=== PATIENT | female | born 1940 | race Caucasian/White ===

== ENCOUNTER → 2017-03-05 | Outpatient (CLI) | payer MEDICARE ==
[~2017-03-05] MED LIST: ATORVASTATIN CA40 MG PO; CALCIUM 600 +1 EAC1 PO; CARVEDILOL12.5 MG PO; CHLORTHALIDONE25 MG PO; COLESTIPOL HCL1 G1 PO; FISH OIL 1,001000 M2 PO; GLUMETZA1000; LITE COAT ASPI325 MG PO; MAVIK2 MG PO; MULTI VITAMIN1 EACH PO; NEURONTIN300 MG PO; PAXIL20 MG PO; PRILOSEC 20 MG20 MG PO; TYLENOL ARTHRI650 MG PO; VITAMIN D2000 UNI1 PO; VITAMINC500 PO
--- NOTE | 2017-03-25 08:31 | PAINCON ---
[facility] [address] [place] [address] PAIN MANAGEMENT CONSULTATION Name: STEVEN MENCHACA Room: [facility] JOSE Urbina#: [id number] Admission: 03/05/17 Attend Phys: Phuc Nelson MD Discharge: Date of : 41 Report #: [id number] THIS REPORT FOR: //name// CC: Wanda Nelson DATE OF SERVICE: 03/05/2017 FOLLOWUP COMPLAINT: I was lifting my mattress and the pain returned. FOLLOWUP HISTORY: The patient is a 76-year-old female who has been seen in the pain clinic because of lumbar radiculopathy. She has undergone an epidural steroid injections. She was having pain and discomfort in the L2-L3/L3-L4 distribution. She underwent an epidural steroid injection in January. She noted significant improvement with that. She had been doing quite well. She was cleaning her house. She was changing the mattress position. After lifting the mattress she noted a worsening of pain and discomfort in her back, which had started to radiate down into the anterior portion of her leg again. She noticed that she had significant/very good relief after the last epidural steroid injection. As you recall, she gerard in [place]. She is anticipating going back down to [place] here in the near future. At this point, she has returned to the pain clinic with pain and discomfort, which is similar to that which she had in the beginning. She would like to proceed with another epidural steroid injection given that she received a significant amount of pain relief. She has had no complications from the last injection. She is experiencing some numbness in her thigh with weakness and tingling. She feels that her current medications are reasonable. ALLERGIES: No known drug allergies. CURRENT MEDICATIONS: Tylenol Extra Strength 1300 mg b.i.d., vitamin C 1000 mg, aspirin coated 325 mg daily, Lipitor 40 mg, vitamin D3, Coreg 12.5 mg b.i.d., chlorthalidone 25 mg, colestipol 1 gram, fish oil, metformin 1000 mg, multivitamin, Prilosec 20 mg b.i.d., Paxil 20 mg, Mavik 2 mg. PHYSICAL EXAMINATION: VITAL SIGNS: Blood pressure 135/78, heart rate 78, respiratory rate 16, room air saturation 98%, temperature 97.6, height 5 feet 3 inches, weight 134 pounds, BMI is 23.8. The patient has not fallen since we saw her last. HEENT: Atraumatic. Eyes, ears, nose and throat are unremarkable. The patient does complain of some chronic rhinitis. Mucous membranes are moist. No JVD. HEART: Regular rate. ABDOMEN: Nontender. The patient has pain and discomfort with pain radiating down into the right lower thigh [place] [address] PAIN MANAGEMENT CONSULTATION Name: STEVEN MENCHACA [id number] Admission: 03/05/17 Attend Phys: Phuc Nelson MD Discharge: Date of : 41 Report #: [id number] IMPRESSION: 1. Lumbar radiculopathy in L2-L3/L3-L4 distribution of her right thigh. 2. Osteoporosis. 3. Hyperlipidemia. 4. Hypertension. 5. Prediabetes. 6. Coronary artery disease. 7. Abdominal aortic aneurysm, stable with a size of 3.1 cm in 07/2013. 8. Spinal stenosis, cervical and lumbar areas. RECOMMENDATIONS: We discussed the treatment options with the patient. Risks and benefits of another epidural steroid injection were discussed and agreed upon. The patient had received a good deal of improvement after the last injection. She was moving her mattress and noticed a worsening of pain and discomfort. At this juncture, we will proceed with another epidural steroid injection. Risks and benefits of the procedure were again reviewed and they could include, but are not limited to infection, increased muscle soreness, headache, bleeding, nerve damage, spinal headache. The patient questions were sought and answered. PROCEDURE NOTE: The patient was placed in the prone position. Fluoroscopy was used to identify the L3/L4 interspace. This is the area where we had injected at the last visit. She found that the results were very good and we will proceed with another injection at this level. Fluoroscopy was used using an AP and lateral viewing. After appropriate placement and the back had been sterilely prepped with Betadine and infiltrated with 0.25% bupivacaine. A 17-gauge Tuohy with loss of resistance technique was used to gain access to the epidural space. There was no CSF, heme or paresthesia. A total of 80 mg Depo-Medrol, 40 mg triamcinolone and 2 mL of 0.25% bupivacaine was injected. The needle was removed. There was no bleeding. A Band-Aid was then placed in this area. The patient was then taken to the recovery room where she remained for an appropriate amount of time. She will call us if she has any concerns. We would like to thank you for letting us participate in her care. We hope she continues to improve. <ELECTRONICALLY SIGNED> By: Phuc Nelson MD 03/25/17 0831 [id number]. MD DELLA Shah
== END | disposition home or self-care (01) ==
LOC: M.PC 02:01
DX: M54.16 Radiculopathy, lumbar region (principal); M81.0 Age-related osteoporosis without current pathological fracture; E78.5 Hyperlipidemia, unspecified; I10 Essential (primary) hypertension; I25.10 Atherosclerotic heart disease of native coronary artery without angina pectoris; I71.4 Abdominal aortic aneurysm, without rupture; M48.02 Spinal stenosis, cervical region; Z79.899 Other long term (current) drug therapy

== ENCOUNTER → 2017-09-22 | Outpatient (CLI) | payer MEDICARE ==
--- NOTE | 2017-09-23 14:16 | PAINCON ---
[facility] [address] [place] [address] PAIN MANAGEMENT CONSULTATION Name: STEVEN MENCHACA Room: [facility] JOSE PhilippeCollin#: [id number] Admission: 09/22/17 Attend Phys: Phuc Nelson MD Discharge: Date of : 41 Report #: [id number] THIS REPORT FOR: //name// CC: Wanda Nelson DATE OF SERVICE: 09/22/2017 FOLLOWUP COMPLAINT: Pain has been pretty much controlled since 02/2017. As noted worsening of pain and discomfort. Pain is mainly in the right side. FOLLOWUP HISTORY: The patient is a 76-year-old female who has been followed in the pain clinic because of lumbar radiculopathy. She underwent an epidural steroid injection in 02/2017. Notes that her pain has done quite well. Over the last few months, she has noted some recurrence and increasing pain. It involves her right side. She has had a flare on the left side as well. She has had no complication from the procedure. Epidural steroid injection able her to engage in activities. She would not be able to without their use. She has returned to the Pain Clinic with a desire to undergo another epidural steroid injection. Feels that Tylenol PM is somewhat helpful. Does not take a nonsteroidal anti-inflammatory medication on a regular basis other than aspirin. ALLERGIES: PROPOFOL. CURRENT MEDICATIONS: Tylenol Arthritis 650 mg b.i.d., vitamin C 500 mg, aspirin 325 mg daily, Lipitor 40 mg, calcium/vitamin D3 one tab t.i.d., Coreg 12.5 mg b.i.d., chlorthalidone 25 mg, colestipol 2 grams b.i.d., fish oil, metformin, multivitamin, Prilosec 20 mg b.i.d., Paxil 20 mg, Mavik 2 mg, total 4 mg daily. PAIN CLINIC ASSESSMENT: 1. History of osteoporosis and arthritic changes in the lower lumbar area, L2-L3. 2. Height 5 feet 4 inches, weight 130 pounds, BMI is 22.5. 3. Vital signs: Blood pressure 126/69, heart rate 61, respiratory rate 16, room air saturation 96%, temperature 98.1. 4. Pain intensity 07/02. 5. Fall risk. The patient has not fallen in the last 3 months. 6. Blood thinner. The patient is not on a blood thinning medication. 7. Hypertension. The patient is being treated for hypertension. 8. Opioid medication. The patient is not on an opioid medication. 9. Risk assessment low for opioid use. 10. Functional assessment tool. 11. Recreational drug use. The patient denies use of recreational drugs. 12. Tobacco: The patient denies use of tobacco. 13. Alcohol: The patient denies frequent [place] [address] PAIN MANAGEMENT CONSULTATION Name: STEVEN MENCHACA Room: [facility]#: [id number] Admission: 09/22/17 Attend Phys: Phuc Nelson MD Discharge: Date of : 41 Report #: [id number] PHYSICAL EXAMINATION: GENERAL: The patient is a well-developed, well-nourished white female. Appears her stated age. She is alert and oriented x 3. Affect is appropriate. Speech is fluent. HEENT: Normocephalic, atraumatic. Extraocular eye muscles intact. Sclerae nonicteric. The patient was wearing glasses. Hearing is within normal limits. Mucous membranes are moist. NECK: With good range of motion. HEART: Regular rate. ABDOMEN: Nontender. LUNGS: Clear to auscultation. EXTREMITIES: Upper extremity muscle strength is judged to be 5/5 for the major muscle groups in the upper extremity. MUSCULOSKELETAL: Without significant scoliosis, kyphosis or lordosis. The patient has pain and discomfort in the lower portion of her back. The patient is experiencing pain is radiating down into the L2-L3 area distribution on her thigh has noted some pain on the left side, but is predominantly on the right. IMPRESSION: 1. Lumbar radiculopathy in the L2-L3 dermatomal distribution near the thigh. 2. Osteoporosis. 3. Hyperlipidemia. 4. Hypertension. 5. Prediabetes. 6. Coronary artery disease. 7. Abdominal aortic aneurysm, stable size 3.1 cm in 07/2013. 8. Spinal stenosis, cervical and lumbar. RECOMMENDATIONS: We discussed treatment options with the patient. She has undergone epidural steroid injection in the past. Has getting good relief of this for greater than about 6 months. She has returned today because of the worsening of pain. She would like to proceed with another epidural steroid injection. Risks and benefits have discussed. The patient received greater than 75% improvement in her pain. Does still have some pain in her low back, groin area and down into the right hip. She would like to proceed with an injection. Risks and benefits were discussed and she chooses to proceed. PROCEDURE NOTE: The patient was taken to the examination room. Her back was sterilely prepped with a Betadine solution. Fluoroscopy using anterior, posterior as well as lateral viewing were incorporated for the procedure. Her back was sterilely prepped at the L3-L4 interspace, 0.25% bupivacaine was infiltrated. A 17-gauge Tuohy with loss of resistance technique was used to gain access to the epidural space. There was no CSF, heme or paresthesia. A total of 80 mg Depo-Medrol, 40 mg triamcinolone and 2 mL of 0.25% bupivacaine was injected. The patient tolerated the procedure well. [place] [address] PAIN MANAGEMENT CONSULTATION Name: STEVEN MENCHACA Room: [facility] ABDIELJuana Urbina#: [id number] Admission: 09/22/17 Attend Phys: Phuc Nelson MD Discharge: Date of : 41 Report #: [id number] remained in the Pain Clinic for an appropriate amount of time. We would like to thank you for letting us participate in her care. She will follow up as needed. <ELECTRONICALLY SIGNED> By: Phuc Nelson MD 09/23/17 1416 [id number] [id number]. Maurizio Nelson MD /nt
== END | disposition home or self-care (01) ==
LOC: M.PC 05:16
DX: M54.16 Radiculopathy, lumbar region (principal); G89.29 Other chronic pain; M48.061 Spinal stenosis, lumbar region without neurogenic claudication; M48.02 Spinal stenosis, cervical region; I10 Essential (primary) hypertension; I25.10 Atherosclerotic heart disease of native coronary artery without angina pectoris; E78.5 Hyperlipidemia, unspecified; M81.0 Age-related osteoporosis without current pathological fracture; Z98.890 Other specified postprocedural states; Z79.899 Other long term (current) drug therapy; Z88.8 Allergy status to other drugs, medicaments and biological substances

== ENCOUNTER → 2017-11-09 | Outpatient (CLI) | payer MEDICARE | LOC: M.ULTRA 09:17 | DX: Z12.31 Encounter for screening mammogram for malignant neoplasm of breast (principal); I71.4 Abdominal aortic aneurysm, without rupture ==

== ENCOUNTER → 2018-02-09 | Outpatient (CLI) | payer MEDICARE | END | disposition home or self-care (01) | LOC: M.PC 04:46 | DX: M54.16 Radiculopathy, lumbar region (principal); Z88.8 Allergy status to other drugs, medicaments and biological substances; Z79.899 Other long term (current) drug therapy; Z79.82 Long term (current) use of aspirin ==

== ENCOUNTER → 2018-06-29 | Outpatient (CLI) | payer MEDICARE ==
--- NOTE | ~2018-06-29 | PAINCON ---
[place] [address] PAIN MANAGEMENT CONSULTATION Name: STEVEN MENCHACA Room: [facility] Carlitos#: [id number] Admission: 06/29/18 Attend Phys: Phuc Nelson MD Discharge: Date of : 41 Report #: [id number] THIS REPORT FOR: //name// CC: Araceli Nelson DATE OF SERVICE: 06/29/2018 CHIEF COMPLAINT: "Low back pain has returned." HISTORY: The patient is a 78-year-old female who has been seen in the Pain Clinic because of pain and discomfort in her low back area. She suffers from lumbar radiculopathy. She notes that epidural steroid injections in the past have been quite fruitful. She notes that the pain level has returned with pain radiating down to her right leg. It involves her foot. There is a tingling sensation associated with this. Activities of daily living such as walking, sitting, standing, lifting and bending exacerbate this discomfort. She feels that the last injection was beneficial and has returned today for another in hope of decreasing the pain and discomfort which she is suffering from. ALLERGIES: PROPOFOL. CURRENT MEDICATIONS: Tylenol Arthritis 650 mg, vitamin C, aspirin 325 mg, Lipitor 40 mg, calcium vitamin D3 tablets t.i.d., Coreg 12.5 mg b.i.d., chlorthalidone 25 mg, colestipol 2 grams b.i.d., fish oil, metformin, multivitamins, Prilosec 20 mg, Paxil 20 mg, Mavik 2 mg - a total of 4 mg daily. PAIN CLINIC ASSESSMENT/PQRS: 1. History of osteoarthritis: The patient has arthritic changes in the low back area. She is not being treated for rheumatoid arthritis. 2. Height 5 feet 3 inches, weight 134 pounds, BMI is 23.8. 3. Vital signs: Blood pressure 109/63, heart rate 61, respiratory rate 16, room air saturation is 94%, temperature 97.5. 4. Pain intensity: 5/10. 5. Fall history: The patient has not fallen in the last 3 months. 6. Blood thinner: The patient is not on a blood thinning medication. 7. Hypertension: The patient is being treated for hypertension. 8. Opioids: The patient is not being treated with opioid medications. 9. Risk assessment tool: Low for opioid use. 10. Functional assessment tool. 11. Recreational drug use: The patient denies use of recreational drugs. 12. Tobacco: The patient denies use of tobacco. 13. Alcohol: The patient rarely drinks an alcoholic beverage. PHYSICAL EXAMINATION: GENERAL: The patient is a well-developed, well-nour[place] [address] PAIN MANAGEMENT CONSULTATION Name: BERNARDASTEVEN Room: [facility]#: [id number] Admission: 06/29/18 Attend Phys: Phuc Nelson MD Discharge: Date of : 41 Report #: [id number] appears her stated age of 78 years. She is alert and oriented x 3. Affect is appropriate. Speech is fluent. HEENT: Normocephalic, atraumatic. Extraocular eye muscles intact. Sclerae nonicteric. The patient is wearing her glasses. NECK: With good range of motion. HEART: Regular rate. ABDOMEN: Nontender. Bowel sounds present. LUNGS: Clear to auscultation, without rhonchi or rales. EXTREMITIES: Upper extremity muscle strength judged to be 5-/5 for the major muscle groups. The patient without significant scoliosis, kyphosis, or lordosis. The patient does have pain and discomfort in her back with pain that is radiating down in the L2-L3 distribution involving the anterior portion of her thigh, particularly on the right side today. IMPRESSION: 1. Lumbar radiculopathy, L2-L3 dermatomal distribution on the right. 2. History of osteoporosis. 3. Hyperlipidemia. 4. Hypertension. 5. Prediabetes. 6. Coronary artery disease. 7. Abdominal aortic aneurysm, stable, 3.1 cm, measured in 07/2013. 8. Spinal stenosis, cervical and lumbar areas of stenosis. RECOMMENDATIONS: We discussed treatment options with the patient. Again, risks and benefits of the epidural steroid injection were discussed. They include but are not limited to infection, worsening of pain, no improvement in pain, bleeding, nerve trauma, and the patient elects to proceed. PROCEDURE NOTE: The patient was taken to the procedure area. She was then assisted in getting on the examination table. Her back was sterilely prepped with a Betadine solution. A pillow was placed under her abdomen to bolster an improved positioning. A 25-gauge needle was then advanced at the ____ interspace. There was no CSF, heme or paresthesia. A total of 80 mg Depo-Medrol, 40 mg triamcinolone and 2 mL of 0.25% bupivacaine was injected. The patient tolerated the procedure well. A total of 9 seconds fluoroscopy time was used. She will follow up in the future as needed. We would like to thank you for letting us participate in her care. We hope she continues to improve. By: [id number]. MD alberto Shah
== END | disposition home or self-care (01) ==
LOC: M.PC 12:37
DX: M54.16 Radiculopathy, lumbar region (principal); G89.29 Other chronic pain; I10 Essential (primary) hypertension; I25.10 Atherosclerotic heart disease of native coronary artery without angina pectoris; E78.5 Hyperlipidemia, unspecified; M48.061 Spinal stenosis, lumbar region without neurogenic claudication; M48.02 Spinal stenosis, cervical region; Z98.890 Other specified postprocedural states; Z88.8 Allergy status to other drugs, medicaments and biological substances; Z87.39 Personal history of other diseases of the musculoskeletal system and connective tissue; Z79.82 Long term (current) use of aspirin; Z79.899 Other long term (current) drug therapy

== ENCOUNTER → 2018-08-30 | Outpatient (CLI) | payer MEDICARE | LOC: M.RAD 08-12 15:30 | DX: M81.0 Age-related osteoporosis without current pathological fracture (principal); E28.39 Other primary ovarian failure ==

== ENCOUNTER → 2018-11-17 | Outpatient (CLI) | payer MEDICARE | LOC: M.RAD 10:48 | DX: Z12.31 Encounter for screening mammogram for malignant neoplasm of breast (principal) ==

== ENCOUNTER → 2018-12-06 | Outpatient (CLI) | payer MEDICARE | LOC: M.ULTRA 12-03 10:30 | DX: I71.4 Abdominal aortic aneurysm, without rupture (principal) ==

== ENCOUNTER → 2019-01-25 | Outpatient (CLI) | payer MEDICARE ==
[~2019-01-25] MED LIST changes: +CRESTOR40 MG PO; +NAPROXEN SODIU220 M2 PO
--- NOTE | ~2019-01-25 | PAINCON ---
[facility] [address] [place] [address] PAIN MANAGEMENT CONSULTATION Name: STEVEN MENCHACA Room: [facility] Carlitos#: [id number] Admission: 01/25/19 Attend Phys: Phuc Nelson MD Discharge: Date of : 41 Report #: [id number] THIS REPORT FOR: //name// CC: Wanda Nelson DATE OF SERVICE: 01/25/2019 CHIEF COMPLAINT: The last epidural injection worked very nicely. I would like to have another. HISTORY: The patient is a 78-year-old female who has been followed in the pain clinic because of chronic back pain. She has undergone epidural steroid injections in the past and found that these have been beneficial. She states that the last injection was quite beneficial. She had a prolonged period of improvement. She has returned today with the hopes of undergoing another epidural injection. She is experiencing pain that radiates down into her legs and rates it as a 4/10. Describes as a constant ache. Notes that the pain is worse when she is sitting, going from a sitting to a standing position, bending and twisting. Notes the pain improves with rest. ALLERGIES: PROPOFOL. CURRENT MEDICATIONS: Tylenol Arthritis 600 mg, vitamin C, aspirin 325 mg, Lipitor 40 mg, calcium, vitamin D t.i.d., Coreg 12.5 mg b.i.d., chlorthalidone 25 mg, colestipol 22 grams b.i.d., fish oil, metformin, multivitamins, Prilosec 20 mg, Paxil 20 mg, Mavik 2 mg, total of 4 mg daily. PAIN CLINIC ASSESSMENT AND PQRS: 1. History of osteoarthritis. The patient has some arthritic changes in her low back area. She is not being treated for rheumatoid arthritis. 2. Height 5 feet 3 inches, weight 133 pounds, BMI is 24. 3. Vital Signs: Blood pressure 131/66, heart rate 62, respiratory rate 16, room air saturation is 94, and temperature 98.0. 4. Pain intensity 06/02. 5. Fall history: The patient has not fallen in the last 3 months. 6. Blood thinner. The patient is not on a blood thinning medication. 7. Hypertension. The patient is being treated for hypertension. 8. Opioids greater than 6 weeks. The patient is not being treated with opioids on a regular basis. 9. Risk assessment tool, low for opioid use. 10. Functional assessment tool reviewed. 11. Recreational drug use: The patient denies. 12. Tobacco: The patient denies use of tobacco. 13. Alcohol: The [place] [address] PAIN MANAGEMENT CONSULTATION Name: STEVEN MENCHACA [facility] [id number] Admission: 01/25/19 Attend Phys: Phuc Nelson MD Discharge: Date of : 41 Report #: [id number] PHYSICAL EXAMINATION: GENERAL: The patient is a well-developed, well-nourished 78-year-old female, who is alert and oriented x 3. Her affect is appropriate. Speech is fluent. HEENT: Normocephalic, atraumatic. Extraocular eye muscles intact. Sclerae nonicteric. Mucous membranes are moist. NECK: Without adenopathy. Good range of motion. HEART: Regular rate. Bowels sounds present. ABDOMEN: Nontender. LUNGS: Generally clear to auscultation. EXTREMITIES: Upper extremity muscle strength judged to be 5/5 for the major muscle groups in the upper extremity. The patient without significant scoliosis, kyphosis, or lordosis. The patient does have pain in the lower portion of her back with pain that is radiating down the L3-L4 dermatomal distribution. This involves the anterior portion of her thigh and particularly involves the right side. IMPRESSION: 1. Lumbar radiculopathy, L3-L4 dermatomal distribution. 2. ____ history of osteoporosis. 3. Hyperlipidemia. 4. Hypertension. 5. Prediabetes. 6. Coronary artery disease. 7. Abdominal aortic aneurysm, stable at 3.1 cm measured in 2013. 8. Spinal stenosis in cervical and lumbar areas of stenosis. RECOMMENDATIONS: We discussed treatment options with the patient. Risks and benefits of an epidural steroid injection were discussed. Possible complications of the procedure, which could include, but are not limited to infection, worsening pain, no improvement in pain, bleeding and nerve damage were discussed and the patient elects to proceed. PROCEDURE NOTE: The patient was taken to the procedure area. She was then assisted in getting on the examination table. Her back was sterilely prepped with a Betadine solution. At the L3-L4 area, 0.25% bupivacaine was infiltrated. A 17-gauge Tuohy with loss of resistance technique was used to gain access to the epidural space using fluoroscopy. There was no CSF, heme, or paresthesia. A total of 80 mg Depo-Medrol, 40 mg triamcinolone and 2 mL of 0.25% bupivacaine was injected. The patient tolerated the procedure well. She remained in the Pain Clinic for an appropriate amount of time. Pain decreased to 3 at the time of discharge. She will follow up in [place] [address] PAIN MANAGEMENT CONSULTATION Name: STEVEN MENCHACA [facility] [id number] Admission: 01/25/19 Attend Phys: Phuc Nelson MD Discharge: Date of : 41 Report #: [id number] We would like to thank you for letting us participate in her care. We hope she continues to improve. By: [id number]. Maurizio Nelson MD /nt
== END | disposition home or self-care (01) ==
LOC: M.PC 04:29
DX: M54.16 Radiculopathy, lumbar region (principal); G89.29 Other chronic pain; M48.061 Spinal stenosis, lumbar region without neurogenic claudication; M48.02 Spinal stenosis, cervical region; I10 Essential (primary) hypertension; E78.5 Hyperlipidemia, unspecified; I25.10 Atherosclerotic heart disease of native coronary artery without angina pectoris; Z98.890 Other specified postprocedural states; Z79.899 Other long term (current) drug therapy; Z88.8 Allergy status to other drugs, medicaments and biological substances; Z79.82 Long term (current) use of aspirin

== ENCOUNTER → 2019-04-12 | Outpatient (CLI) | payer MEDICARE ==
--- NOTE | 2019-04-15 09:08 | PAINCON ---
[facility] [address] [place] [address] PAIN MANAGEMENT CONSULTATION Name: STEVEN MENCHACA Room: [facility] JOSE Urbina#: [id number] Admission: 04/12/19 Attend Phys: Phuc Nelson MD Discharge: Date of : 42 Report #: [id number] THIS REPORT FOR: //name// cc: Araceli [place] Maggie M. DO ~ THIS REPORT FOR: //name// CC: Araceli Nelson DATE OF SERVICE: 04/12/2019 CHIEF COMPLAINT: Return of back pain. HISTORY: The patient is a 78-year-old female who has been followed in the pain clinic because of lumbar radiculopathy. She has noted some pain and discomfort in the low back area. Her unfortunately fell. He fractured his pelvis. As a result, she was forced to do significantly more activities. She noticed worsening of her pain after lifting and carrying a cooler out of the basement. Since that time, she has had more pain and discomfort. Rates her pain as a 3/10. She has returned today with the hopes of undergoing an epidural injection to help improve her pain and discomfort. She is feeling distraught. Her sister who she is very close to . She had a history of lung cancer. It appears that the cancer had infiltrated in her liver. This is causing the patient some consternation. ALLERGIES: PROPOFOL. CURRENT MEDICATIONS: Tylenol Arthritis 600 mg, vitamin C, aspirin 325 mg, Lipitor 40 mg, calcium, vitamin D t.i.d., Coreg 12.5 mg b.i.d., chlorthalidone 25 mg, colestipol 22 grams b.i.d., fish oil, metformin, multivitamin, Prilosec 20 mg, Paxil 20 mg. PAIN CLINIC ASSESSMENT AND PQRS: 1. History of osteoarthritis. The patient has some arthritic changes in her low back area. She is not being treated for rheumatoid arthritis. 2. Height 5 feet 3 inches, weight 131 pounds, BMI is 23.6. 3. Vital Signs: Blood pressure 131/69, heart rate is 56, respiratory rate 16, room air saturation 97%, temperature 97.4. 4. Pain intensity 05/02. 5. Fall history: The patient has not fallen in the last 3 months. 6. Blood thinner. The patient is not on a blood thinning medication. 7. Hypertension. The patient is being treated for hypertension. 8. Opioids greater than 6 weeks. The patient is not on an opioid regimen. 9. Risk assessment tool, low for opioid use. 10. Functional assessment [place] [address] PAIN MANAGEMENT CONSULTATION Name: STEVEN MENCHACA Room: [facility]#: [id number] Admission: 04/12/19 Attend Phys: Phuc Nelson MD Discharge: Date of : 42 Report #: [id number] 11. Tobacco: The patient denies use of tobacco. 12. Alcohol: The patient rarely drinks an alcoholic beverage. PHYSICAL EXAMINATION: GENERAL: The patient is a well-developed, well-nourished white female. Appears her stated age of 78 years. She is alert and oriented x 3. Her affect is appropriate. She is somewhat mournful for her sister who recently . HEENT: Normocephalic, atraumatic. Extraocular eye muscles intact. Sclerae nonicteric. Mucous membranes are moist. NECK: Without adenopathy or JVD. HEART: Regular rate. ABDOMEN: Soft. Bowel sounds present. LUNGS: Clear to auscultation. EXTREMITIES: Upper extremity muscle strength judged to be 5/5 for the major muscle groups in the upper extremity. The patient is without significant scoliosis, kyphosis or lordosis. The patient has pain and discomfort in the low back area with pain radiating down the L3-L4 dermatomal distribution. This involves the anterior portion of her thighs. IMPRESSION: 1. Lumbar radiculopathy, L3-L4 dermatomal distribution. 2. History of osteoarthritis with changes in the low back area. 3. Hyperlipidemia. 4. Hypertension. 5. Prediabetes. 6. Coronary artery disease. 7. Abdominal aortic aneurysm, stable at 3.1 cm measured in 2013. 8. Spinal stenosis in the cervical area as well as lumbar area. RECOMMENDATIONS: We discussed treatment options with the patient. Risks and benefits of an epidural steroid injection were discussed. Possible complications of the procedure, which could include but are not limited to infection, worsening pain, no improvement in pain, nerve damage, spinal headache were discussed and the patient elects to proceed. Questions were sought and answered. PROCEDURE: The patient was then taken to the procedure area. She was then assisted in getting on examination table. Her back was sterilely prepped with a Betadine solution. A 0.25% bupivacaine at the L3-L4 interspace was undertaken. After this area had been anesthetized with a 25-gauge needle, a 17-gauge Tuohy with loss of resistance technique was used to gain access to the epidural space. The patient's needle placement was reviewed using anterior as well as posterior viewing with fluoroscopy. A total of 80 mg Depo-Medrol, 40 mg triamcinolone and 2 mL of 0.25% bupivacaine was injected. The patient tolerated the procedure well. There were no complications. She remained in the Pain Clinic for an appropriate amount of time. She underwent an 11 [place] [address] PAIN MANAGEMENT CONSULTATION Name: STEVEN MENCHACA Room: [facility]#: [id number] Admission: 04/12/19 Attend Phys: Phuc Nelson MD Discharge: Date of : 42 Report #: [id number] We would like to thank you for letting us participate in her care. We hope she continues to improve. <ELECTRONICALLY SIGNED> By: Phuc Nelson MD 04/15/19 [id number]. Maurizio Nelson MD /LISA
== END | disposition home or self-care (01) ==
LOC: M.PC 08:56
DX: M54.16 Radiculopathy, lumbar region (principal); G89.29 Other chronic pain; M48.061 Spinal stenosis, lumbar region without neurogenic claudication; M48.02 Spinal stenosis, cervical region; I10 Essential (primary) hypertension; E78.5 Hyperlipidemia, unspecified; I25.10 Atherosclerotic heart disease of native coronary artery without angina pectoris; Z98.890 Other specified postprocedural states; Z79.899 Other long term (current) drug therapy; Z88.8 Allergy status to other drugs, medicaments and biological substances

== ENCOUNTER → 2019-07-12 | Outpatient (CLI) | payer MEDICARE ==
[~2019-07-12] MED LIST changes: +LYRICA 50 MG50 MG PO
== END | disposition home or self-care (01) ==
LOC: M.PC 05:03
DX: M54.16 Radiculopathy, lumbar region (principal); G89.29 Other chronic pain; Z98.890 Other specified postprocedural states; Z79.899 Other long term (current) drug therapy

== ENCOUNTER → 2019-11-22 | Outpatient (CLI) | payer MEDICARE | LOC: M.RAD 10:20 | PROVIDERS: ATTEND Family Medicine | DX: Z12.31 Encounter for screening mammogram for malignant neoplasm of breast (principal) ==

== ENCOUNTER → 2019-12-19 | Outpatient (CLI) | payer MEDICARE | LOC: M.ULTRA 10:05 | PROVIDERS: ATTEND Internal Medicine Cardiovascular Disease | DX: I71.4 Abdominal aortic aneurysm, without rupture (principal) ==

== ENCOUNTER → 2020-11-28 | Outpatient (CLI) | payer MEDICARE | LOC: M.ULTRA 09:59 | PROVIDERS: ATTEND Internal Medicine Cardiovascular Disease | DX: Z12.31 Encounter for screening mammogram for malignant neoplasm of breast (principal); I71.4 Abdominal aortic aneurysm, without rupture ==